=== PATIENT | female | born 1995 | race Native Hawaiian/Other Pacific Islander ===

== ENCOUNTER 2017-03-14 08:28 | Emergency (ER) | payer OTHER ==
[~2017-03-14] VITALS: Ht 160 cm; Wt 63.5 kg
[2017-03-14 08:30] VITALS: BP 155/100; TEMP 97.9
[2017-03-14] MEDS ORDERED: LEVOFLOXACIN500 MG OR (08:41)
[2017-03-14 08:59] LABS: PLATELET COUNT 301 K/uL (152-353)
[2017-03-14 09:07] LABS: POTASSIUM 3.9 mmol/L (3.6-5.2); SODIUM 138 mmol/L (136-145)
== END 2017-03-14 10:37 | disposition home or self-care (01) ==
LOC: ED 08:28
PROVIDERS: Emergency Medicine
DX: J02.9 Acute pharyngitis, unspecified (principal); J03.90 Acute tonsillitis, unspecified; I10 Essential (primary) hypertension; R22.1 Localized swelling, mass and lump, neck
CPT/HCPCS: 36415; 80048; 81025; 85027; 99283

== ENCOUNTER 2017-06-14 12:20 | Outpatient (CLI) | payer OTHER ==
[~2017-06-14 12:20] MED LIST: LEVOFLOXACIN500 MG OR
[2017-06-14 12:45] LABS: PLATELET COUNT 251 K/uL (152-353)
[2017-06-14 13:07] LABS: POTASSIUM 3.7 mmol/L (3.6-5.2); SODIUM 134 mmol/L (136-145)
== END 2017-06-14 13:20 | disposition home or self-care (01) ==
LOC: LABW 12:20
PROVIDERS: Nurse Practitioner Family
DX: Z79.899 Other long term (current) drug therapy (principal); Z51.81 Encounter for therapeutic drug level monitoring
CPT/HCPCS: 80053; 80074; 85027

== ENCOUNTER 2018-03-03 08:11 | Outpatient (CLI) | payer OTHER | END 2018-03-03 22:35 | disposition home or self-care (01) | LOC: US 08:11 | DX: R11.2 Nausea with vomiting, unspecified (principal) ==

== ENCOUNTER 2018-05-20 11:34 | Emergency (ER) | payer OTHER ==
[~2018-05-20] VITALS: Ht 160 cm; Wt 68.0 kg
[2018-05-20 13:18] VITALS: BP 125/71; TEMP 98.6
== END 2018-05-20 13:23 | disposition home or self-care (01) ==
LOC: ED 11:34
DX: J02.0 Streptococcal pharyngitis (principal)
CPT/HCPCS: 87880; 99282

== ENCOUNTER 2018-06-15 20:53 | Emergency (ER) | payer OTHER ==
[~2018-06-15] VITALS: Ht 160 cm; Wt 72.1 kg
[2018-06-15 21:01] VITALS: TEMP 98.2
[2018-06-15 22:16] LABS: PLATELET COUNT 245 K/uL (152-353)
[2018-06-15 22:26] LABS: POTASSIUM 4.6 mmol/L (3.6-5.2)
[2018-06-15 23:20] VITALS: BP 138/83
== END 2018-06-15 23:22 | disposition home or self-care (01) ==
LOC: ED 20:53
PROVIDERS: Internal Medicine
DX: K62.5 Hemorrhage of anus and rectum (principal); R19.7 Diarrhea, unspecified; E86.0 Dehydration; M54.32 Sciatica, left side
CPT/HCPCS: 36415; 80053; 81000; 85027; 99283

== ENCOUNTER 2018-07-05 12:23 | Outpatient (CLI) | payer OTHER | END 2018-07-05 19:41 | disposition home or self-care (01) | LOC: LABW 12:23 | DX: R19.7 Diarrhea, unspecified (principal) | CPT/HCPCS: 82272; 83630; 87015; 87045; 87324; 87328; 87329; 87449; 87507; 87899 ==

== ENCOUNTER 2018-07-12 11:38 | Outpatient (CLI) | payer OTHER | END 2018-07-12 21:01 | disposition home or self-care (01) | LOC: LABW 11:38 | DX: N39.0 Urinary tract infection, site not specified (principal) | CPT/HCPCS: 87086; 87088 ==

== ENCOUNTER 2018-07-17 10:58 | Outpatient (CLI) | payer OTHER | END 2018-07-17 19:56 | disposition home or self-care (01) | LOC: LAB 10:58 | DX: Z77.21 Contact with and (suspected) exposure to potentially hazardous body fluids (principal) | CPT/HCPCS: 80074 ==

== ENCOUNTER 2018-10-01 12:15 | Emergency (ER) | payer OTHER ==
[~2018-10-01] VITALS: Ht 160 cm; Wt 64.4 kg
[2018-10-01 12:25] VITALS: TEMP 98.1
[2018-10-01 14:00] VITALS: BP 139/91
== END 2018-10-01 14:33 | disposition home or self-care (01) ==
LOC: ED 12:15
DX: J03.90 Acute tonsillitis, unspecified (principal)
CPT/HCPCS: 87651; 96372; 99283; J0696

== ENCOUNTER 2018-10-02 11:43 | Day surgery (SDC) | payer OTHER ==
[2018-10-02 12:36] LABS: PLATELET COUNT 239 K/uL (152-353)
[2018-10-02 12:40] LABS: POTASSIUM 3.6 mmol/L (3.6-5.2)
== END 2018-10-02 16:20 | disposition home or self-care (01) ==
LOC: OR 11:43
PROVIDERS: Student in an Organized Health Care Education/Training Program
PROC: 0C9P3ZZ Drainage of Tonsils, Percutaneous Approach (ICD-10-PCS; principal; 2018-10-02)
DX: J36 Peritonsillar abscess (principal)
CPT/HCPCS: 80053; 84703; 85027; J0132; J0330; J1100; J2001; J2250; J2405; J2704; J2710; J2765; J3010; J3490

== ENCOUNTER 2019-07-16 10:38 | Inpatient (IN) | payer OTHER ==
[~2019-07-16] VITALS: Ht 160 cm; Wt 61.0 kg
[2019-07-16 12:33] LABS: PLATELET COUNT 270 K/uL (152-353)
[2019-07-16 12:40] LABS: POTASSIUM 4.3 mmol/L (3.6-5.2)
[2019-07-16 14:38] VITALS: BP 140/88; TEMP 98.4; Ht 160 cm; Wt 61.0 kg
[2019-07-16 16:04] VITALS: BP 111/68; TEMP 98.1
[2019-07-16 20:00] VITALS: BP 105/68; TEMP 99.6
[2019-07-16 23:55] VITALS: BP 106/59; TEMP 98.3
[2019-07-17 04:10] VITALS: BP 99/53; TEMP 98.7
[2019-07-17 08:07] VITALS: BP 91/53; TEMP 98
[2019-07-17] MEDS ORDERED: CLINDAMYCIN HY300 MG PO (10:06)
== END 2019-07-17 13:48 | disposition home or self-care (01) | DRG 153 ==
LOC: MED/SURG 10:38
PROVIDERS: ADMIT Internal Medicine
DX: J36 Peritonsillar abscess (principal); E86.0 Dehydration; R13.19 Other dysphagia
CPT/HCPCS: 80053; 81000; 81025; 83605; 85027; 87040; J1885; J2405; J3370; J3490; Q9963

== ENCOUNTER 2019-11-28 13:49 | Outpatient (CLI) | payer OTHER ==
[~2019-11-28 13:49] MED LIST changes: +CLINDAMYCIN HY300 MG PO
== END 2019-11-28 20:17 | disposition home or self-care (01) ==
LOC: LAB 13:49
DX: Z32.01 Encounter for pregnancy test, result positive (principal)
CPT/HCPCS: 84702

== ENCOUNTER 2020-07-11 13:24 | Outpatient (CLI) | payer OTHER | END 2020-07-11 23:27 | disposition home or self-care (01) | LOC: LABW 13:24 | DX: Z34.83 Encounter for supervision of other normal pregnancy, third trimester (principal) | CPT/HCPCS: 36415; 86592; 86701; 86702; 87389 ==

== ENCOUNTER 2021-04-07 15:30 | Outpatient (CLI) | payer OTHER | END 2021-04-07 18:00 | disposition home or self-care (01) | LOC: LAB 15:30 | PROVIDERS: ATTEND Internal Medicine | DX: Z20.2 Contact with and (suspected) exposure to infections with a predominantly sexual mode of transmission (principal) | CPT/HCPCS: 87490; 87590 ==

== ENCOUNTER 2021-08-19 14:22 | Outpatient (CLI) | payer OTHER | END 2021-08-19 22:38 | disposition home or self-care (01) | LOC: MAMMO 14:22 → US 14:22 | PROVIDERS: ATTEND Pediatrics | DX: N63.0 Unspecified lump in unspecified breast (principal) ==

== ENCOUNTER 2021-10-15 10:49 | Outpatient (CLI) | payer OTHER | END 2021-10-15 18:44 | disposition home or self-care (01) | LOC: US 10:49 | PROVIDERS: ATTEND Nurse Practitioner Family | DX: N63.0 Unspecified lump in unspecified breast (principal); R92.8 Other abnormal and inconclusive findings on diagnostic imaging of breast; N63.10 Unspecified lump in the right breast, unspecified quadrant; N63.20 Unspecified lump in the left breast, unspecified quadrant ==

== ENCOUNTER 2022-07-27 22:51 | Emergency (ER) | payer OTHER ==
[~2022-07-27] VITALS: Ht 160 cm; Wt 47.6 kg
[2022-07-28 01:38] VITALS: BP 124/67; TEMP 97.8
== END 2022-07-28 01:38 | disposition home or self-care (01) ==
LOC: ED 22:51
DX: S90.511A Abrasion, right ankle, initial encounter (principal); S90.811A Abrasion, right foot, initial encounter; S90.01XA Contusion of right ankle, initial encounter; S90.31XA Contusion of right foot, initial encounter; S00.83XA Contusion of other part of head, initial encounter; Y04.2XXA Assault by strike against or bumped into by another person, initial encounter; Y92.89 Other specified places as the place of occurrence of the external cause
CPT/HCPCS: 99283

== ENCOUNTER 2023-04-25 13:32 | Outpatient (CLI) | payer OTHER | END 2023-04-25 20:50 | disposition home or self-care (01) | LOC: RAD 13:32 | PROVIDERS: ATTEND Nurse Practitioner Family | DX: M25.531 Pain in right wrist (principal); M79.641 Pain in right hand ==

== ENCOUNTER 2023-06-17 13:43 | Outpatient (CLI) | payer OTHER | END 2023-06-17 20:45 | disposition home or self-care (01) | LOC: US 13:43 | PROVIDERS: ATTEND Nurse Practitioner Family | DX: N63.0 Unspecified lump in unspecified breast (principal); N64.4 Mastodynia | CPT/HCPCS: G0279 ==

== ENCOUNTER 2023-08-08 11:16 | Outpatient (CLI) | payer OTHER | END 2023-08-08 18:54 | disposition home or self-care (01) | LOC: LABW 11:16 | PROVIDERS: ATTEND Nurse Practitioner Family | DX: R50.9 Fever, unspecified (principal); J98.8 Other specified respiratory disorders | CPT/HCPCS: 87502 ==